=== PATIENT | female | born 1945 | race Caucasian/White ===

== ENCOUNTER 2017-03-12 05:35 | Emergency (ER) | payer MEDICARE, BC ==
[~2017-03-12 05:35] MED LIST: ADVAIR 2501 DISK W/1 INH; ASPIRIN EC81 M1 PO; BENZONATATE PO; BIPOLAR MED; BLOOD PRESSURE MED; DIABETES HEALT1 EACH PO; JANUMET 50-5001 EACH; KEFLEX500 M2 PO; LAMICTAL ODT25 MG; LEVAQUIN750 M1 PO; LIPITOR20 MG PO; METOPROLOL TART25 MG PO; PREDNISONE PO; SERTRALINE HCL100 M1 PO; TRAMADOL HCL50 M1 PO; VITAMIN D1000 UNIT PO; VITAMIN D50000 UNIT PO; ZESTRIL5 MG PO; ZYRTEC10 M1 PO
== END 2017-03-12 06:23 | disposition home or self-care (01) ==
LOC: SED 05:35
DX: L03.011 Cellulitis of right finger (principal); I10 Essential (primary) hypertension; F31.9 Bipolar disorder, unspecified; Z85.3 Personal history of malignant neoplasm of breast; E11.9 Type 2 diabetes mellitus without complications
CPT/HCPCS: 99283